=== PATIENT | male | born 1960 | race Caucasian/White ===

== ENCOUNTER → 2017-02-11 | Day surgery (SDC) | payer OTHER ==
[~2017-02-11] MED LIST: 1-ME1LIQ PO; BUPIVACAINE HCL PF 0.75% 30 ML VIAL ONE; CEPH250 PO; DYAZ37.57 PO; EPINEPHrine HCL (1:1000) 1 MG/ML VIAL OTHER ONE; LACTATED RINGER'S 1000 ML INJ 1,000 ML ONE; LIDOCAINE 1.5%/EPINEPHrine 1:200,000 PF SOLN 30 ML AMP ONE; MIDAZOLAM HCL 5 MG/ML VIAL (1 ML) ONE; PERC5TAB12 PO; PROPOFOL 200 MG/20 ML AMP IV ONE; ceFAZolin 2 GM PREMIX 50 ML ONE
--- NOTE | 2017-02-14 09:51 | MP ---
cc: BETTIE FOSTER DATE OF SURGERY February 11, 2017 PREOPERATIVE DIAGNOSES 1. Right shoulder rotator cuff tear. 2. Right shoulder impingement syndrome. 3. Right shoulder labral tear. 4. Right shoulder chondromalacia. POSTOPERATIVE DIAGNOSES 1. Right shoulder rotator cuff tear. 2. Right shoulder impingement syndrome. 3. Right shoulder labral tear. 4. Right shoulder chondromalacia. PROCEDURE 1. Right shoulder arthroscopic rotator cuff repair. 2. Right shoulder arthroscopic subacromial decompression. 3. Right shoulder arthroscopic extensive debridement of the labral SLAP tear with chondroplasty glenohumeral joint. SURGEON Dr. Bettie Foster [employer] Dima Del Valle PA-C ANESTHESIA General with an interscalene block. ESTIMATED BLOOD LOSS Less than 50 cc. COMPLICATIONS None. IMPLANTS USED Arthrex. JUSTIFICATION FOR PROCEDURE This patient is a 56-year-old male who injured the right shoulder. He has had persistent of the pain and weakness. In regards to his condition and failed conservative treatment, clinical exam as well as MRI confirmed the above-named findings. The patient was counseled as to hit risks, benefits and alternatives to the above-named proposed surgical procedure. He did wish to proceed with surgery. PROCEDURE IN DETAIL Written consent was obtained. The patient was identified by name, taken to the operating room, placed supine. After general anesthesia was administered as well as 2 grams of IV Ancef, he did receive preoperative interscalene block. The patient was carefully turned to the left lateral decubitus position. Lateral arm roll was placed, the elbow and all bony prominences and pressure points were well-padded. The patient's neck was positioned and was carefully monitored and kept neutral. An arthroscopic arm patel was gently applied to the right upper extremity with 10 pounds of traction placed, the right shoulder prepped and draped using isopropyl alcohol, Hibiclens solution and DuraPrep solution. After time out was performed, a standard posterior and anterior glenohumeral arthroscopic portal was established. The glenohumeral joint revealed evidence of extensive labral tearing along the anterior, superior and posterior portions. An arthroscopic shaver was introduced from the anterior portal and extensive debridement was of the labrum was performed to include the anterior 3 o'clock position up to the superior 12 o'clock position, back down to the posterior 9 o'clock position. There was partial tearing of the biceps origin which was also debrided. There was evidence of chondromalacia along the superior glenohumeral joint which was debrided and a chondroplasty performed. There was evidence of mass rotator cuff tendon tear involving the supraspinatus and infraspinatus tendon. Attention was turned to the subacromial space. A subacromial decompression was performed and the shaver was used to perform extensive bursectomy. An arthroscopic bur was performed an acromioplasty and cautery device used to release the coracoacromial ligament. The bur was also used to decorticate the greater tuberosity in preparation for rotator cuff tendon repair. Two Arthrex 4.75 mm Bio-SwiveLock anchors were inserted along the medial row. The Arthrex Scorpion device was used to shuttle #2 FiberTape suture through the anterior and posterior portions of the torn tendon. A #2 FiberLink suture was placed along the anterior and posterior portions of the tear. At this point an Arthrex double row SpeedBridge construct was created with implantation of a posterior lateral anchor and anterior lateral anchor. After appropriate tensioning of sutures and implantation of suture anchors, the rotator cuff tendon repair was probed and noted to have good stability and fixation. The arthroscopic portals were closed with 3-0 Prolene sutures. Sterile dressings were applied. The patient was placed in a sling and swath immobilizer. She tolerated the procedure well with no intraoperative complications noted. Bettie Del Valle, physician surgeon assistant certified, was present during the entire procedure to include patient positioning and the procedure itself. The medical necessity of the physician surgeon assistant was indicated in this case due to the complexity of the procedure itself. He assisted with manipulation of the arm and also manipulation of the camera. He assisted in shuttling of sutures and also implantation of suture anchors for the purposes of rotator cuff tendon repair. Bettie Foster MD JWM/SSB /11:25 AM /9:22 AM
== END | disposition home or self-care (01) ==
LOC: ESDC 08:48
PROVIDERS: ATTEND Orthopaedic Surgery Sports Medicine
DX: M75.121 Complete rotator cuff tear or rupture of right shoulder, not specified as traumatic (principal); M75.41 Impingement syndrome of right shoulder; S43.431A Superior glenoid labrum lesion of right shoulder, initial encounter; M94.211 Chondromalacia, right shoulder; E11.9 Type 2 diabetes mellitus without complications; Z79.84 Long term (current) use of oral hypoglycemic drugs
CPT/HCPCS: 01630; 01991; 29823; 29826; 29827; 64417; 82948; C1713; J0171; J0690; J2250; J7120